=== PATIENT | male | born 1960 | race Caucasian/White ===

== ENCOUNTER 2017-04-24 21:46 | Emergency (ER) | payer MEDICAID ==
[2017-04-24 22:03] VITALS: BP 116/77; PULSE 61; RESP 20; TEMP 98; O2SAT 100
--- NOTE | 2017-04-24 23:58 | C.PDOC ---
History Of Present Illness 56 year old male presents to the ER with a complaint right sided lower back pain that began after exercising. Patient states he applied a topical pain reliever to the area with minimal relief. Denies weakness, numbness, dysuria, hematuria, or incontinence. Time Seen by Provider: 04/24/17 22:14 Chief Complaint (Nursing): Back Pain History Per: Patient History/Exam Limitations: no limitations Current Symptoms Are (Timing): Still Present Quality Of Discomfort: Unable To Describe Previous Symptoms: None Associated Symptoms: None Exacerbating Factor(s): Nothing Recent travel outside of the [place]: No Past Medical History Reviewed: Historical Data, Nursing Documentation, Vital Signs Vital Signs: Last Vital Signs Temp 98 F 04/24/17 22:00 Pulse 61 04/24/17 22:00 Resp 20 04/24/17 22:00 BP 116/77 04/24/17 22:00 Pulse Ox 100 04/24/17 23:59 Family History: States: Unknown Family Hx - Social History Hx Tobacco Use: No Hx Alcohol Use: No Hx Substance Use: No - Immunization History Hx Tetanus Toxoid Vaccination: No Hx Influenza Vaccination: No Hx Pneumococcal Vaccination: No Review Of Systems Genitourinary: Negative for: Dysuria, Incontinence, Hematuria Musculoskeletal: Positive for: Back Pain Neurological: Negative for: Weakness, Numbness Physical Exam - Physical Exam Appears: Non-toxic, No Acute Distress Skin: Normal Color, Warm, Dry Head: Atraumatic, Normacephalic Eye(s): bilateral: Normal Inspection Back: No Vertebral Tenderness, Paraspinal Tenderness (Mild right lumbar), Straight Leg Raising (Negative) Extremity: Normal ROM (x4) Neurological/Psych: Oriented x3, Normal Speech, Normal Motor, Normal Sensation Gait: Steady ED Course And Treatment O2 Sat by Pulse Oximetry: 100 (Room air) Pulse Ox Interpretation: Normal Progress Note: Motrin administered. Patient report improvement of pain, he is ambulatory in the ER without any pain or discomfort. Will discharge home with instructions to follow up with PMD or return if symptoms worsen. 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 - Scribe Statement The provider has reviewed the documentation as recorded by the Scribcarin Cummings All medical record entries made by the Artiibcarin were at my direction and personally dictated by me. I have reviewed the chart and agree that the record accurately reflects my personal performance of the history, physical exam, medical decision making, and the department course for this patient. I have also personally directed, reviewed, and agree with the discharge instructions and disposition.
== END 2017-04-25 00:06 | disposition home or self-care (01) ==
LOC: C.ER 21:46
DX: S39.012A Strain of muscle, fascia and tendon of lower back, initial encounter (principal); X58.XXXA Exposure to other specified factors, initial encounter